=== PATIENT | female | born 1990 | race African-American/Black ===

== ENCOUNTER 2017-04-10 21:45 | Observation (INO) ==
[2017-04-10] MEDS ORDERED: HYDROmorphone 2 MG/1 ML VIAL IV STA (22:06)
[2017-04-10] MEDS ORDERED: ONDANSETRON 4 MG/2 ML VIAL IV STA (22:06)
[2017-04-10] MEDS ORDERED: DIPH/TET/ACEL PERT BOOSTER VACCINE 0.5 ML VIAL IM ONE ×2 (22:06→22:16)
[2017-04-10] MEDS ORDERED: CLINDAMYCIN INJ 600 MG in PREMIX 1 EACH IV STA (22:06)
[2017-04-10] MEDS ORDERED: LACTATED RINGERS 1,000 ML IV STA (22:06)
[2017-04-10] MEDS ORDERED: ONDANSETRON 4 MG/2 ML VIAL ONE (22:15)
[2017-04-10] MEDS ORDERED: CLINDAMYCIN INJ 50 ML IV ONE (22:15)
[2017-04-10] MEDS ORDERED: HYDROmorphone 2 MG/1 ML VIAL ONE (22:16)
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
[2017-04-10 22:53] LABS: Basophils % 0.2 % (0.0-0.8); Eosinophils % 0.3 % (0.00-10.9); Hematocrit 36.4 VOL% (35.7-47.0); Hemoglobin 12.6 GM/DL (12.0-16.0); Immature Granulocytes % 0.5 %; Immature Granulocytes Absolute 0.06 #; Lymphocytes # 1.7 10*3/uL (1.4-4.0); Lymphocytes % 13.1 % (21.3-54.2); Mean Corpuscular HGB Conc 34.6 GM/DL (32-36); Mean Corpuscular Hemoglobin 31 PG (27-34); Mean Corpuscular Volume 90.1 FL (87-102); Mean Platelet Volume 10.5 FL (9.6-12.0); Monocytes % 7.5 % (1.7-12.7); Neutrophils # 10.3 10*3/uL (1.4-7.4); Neutrophils % 78.4 % (38.7-73.9); Platelet Count 239 T/CUMM (130-400); Red Blood Count 4.04 MC/CUMM (3.8-5.5); White Blood Count 13.2 T/CUMM (4-12)
[2017-04-10 23:04] LABS: INR 1.1; Partial Thromboplastin Time 30.6 SECS (0-40)
[2017-04-10 23:12] LABS: Alanine Aminotransferase 22 U/L (13-56); Albumin 4.1 G/DL (3.4-5.0); Alkaline Phosphatase 76 U/L (45-117); Amylase 77 U/L (25-115); Aspartate Amino Transferase 32 U/L (0-37); Blood Urea Nitrogen 7 MG/DL (7-18); Calcium 9.7 MG/DL (8.5-10.1); Glucose 110 MG/DL (74-106); Osmolality,Calculated 281.1 MOS/KG (273-304); Potassium 3.7 MMOL/L (3.5-5.1); Sodium 142 MMOL/L (136-145); Total Protein 7.2 G/DL (6.4-8.3)
[2017-04-11 01:10] LABS: Barbiturates Screen,Urine Negative (Negative); Benzodiazepines Screen,Urine Negative (Negative); Cannabinoid Screen,Urine Positive (Negative); Opiate Screen,Urine Positive (Negative); Phencyclidine Screen,Urine Negative (Negative)
[2017-04-11 01:13] LABS: Apearance,Urine CLOUDY (Clear); Bilirubin,Urine Negative (Negative); Blood, Urine Moderate mg/dL (Negative); Glucose,Urine (UA) Negative (Negative); Ketones,Urine Negative (Negative); Mucus,Urine Occasional /LPF (Occasional); Nitrite,Urine Negative (Negative); Protein,Urine 30 MG/DL; RBC,Urine 7 /HPF (0-4); Squamous Epithelial Cell,Urine Occasional /HPF (0-10); Urine Specific Gravity 1.053 (1.001-1.035); Urine Urobilinogen < 2.0 EU/DL (0.2-1.0); WBC,Urine 3 /HPF (0-6)
[2017-04-11 01:14] LABS: Urine Color Yellow (Yellow)
[2017-04-11] MEDS ORDERED: ONDANSETRON 4 MG/2 ML VIAL IV PRN (02:12)
[2017-04-11] MEDS ORDERED: ACETAMINOPHEN 325 MG TABLET PO PRN (02:12)
[2017-04-11] MEDS ORDERED: HYDROmorphone 2 MG/1 ML VIAL IV PRN (02:12)
[2017-04-11] MEDS ORDERED: ALBUTEROL/IPRATROPIUM 3 ML NEB RESP TX PRN (02:12)
[2017-04-11] MEDS: LACTATED RINGERS 1,000 ML IV SCH ×2 (02:49→11:11)
[2017-04-11] MEDS: metroNIDAZOLE INJ 500 MG in PREMIX 1 EACH IV SCH ×2 (02:51→11:11)
[2017-04-11] MEDS ORDERED: CIPROFLOXACIN INJ 400 MG in PREMIX 1 EACH IV SCH (04:00)
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
--- NOTE | 2017-04-11 07:14 | XRay Report ---
XR femur BI, 2 views; XR knee 2V BI Clinical Information: pain. trauma Comparison: None Findings: Both femurs are intact without evidence of acute fracture. No suspicious osseous or soft tissue lesions are identified. Knee joints are intact with no evidence of acute fracture or dislocation. There is no joint effusion.. Impression: No acute findings. PROCEDURE INTERPRETED AT [facility] DEPARTMENT OF RADIOLOGY Final Report Signed by: Johnson De La Cruz
[2017-04-11 07:17] LABS: Basophils % 0.1 % (0.0-0.8); Eosinophils % 0.4 % (0.00-10.9); Hematocrit 32.6 VOL% (35.7-47.0); Hemoglobin 11.1 GM/DL (12.0-16.0); Immature Granulocytes % 0.4 %; Immature Granulocytes Absolute 0.04 #; Lymphocytes # 2.5 10*3/uL (1.4-4.0); Mean Corpuscular Hemoglobin 31 PG (27-34); Mean Corpuscular Volume 90.8 FL (87-102); Mean Platelet Volume 10.5 FL (9.6-12.0); Monocytes # 1.1 10*3/uL (0.11-0.8); Monocytes % 10.6 % (1.7-12.7); Neutrophils # 6.6 10*3/uL (1.4-7.4); Neutrophils % 64.5 % (38.7-73.9); Platelet Count 217 T/CUMM (130-400); Red Blood Count 3.59 MC/CUMM (3.8-5.5); Red Cell Distribution Width 13.1 % (9.3-17.3); White Blood Count 10.2 T/CUMM (4-12)
[2017-04-11 07:45] LABS: Albumin 3.2 G/DL (3.4-5.0); Bilirubin,Total 0.5 MG/DL (0.2-1.0); Calcium 8.6 MG/DL (8.5-10.1); Magnesium 1.7 MG/DL (1.8-2.4); Potassium 3.8 MMOL/L (3.5-5.1); Total Protein 5.7 G/DL (6.4-8.3)
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
[2017-04-11] MEDS ORDERED: PANTOPRAZOLE 40 MG TABLET PO SCH (09:00)
[2017-04-11 11:56] VITALS: BP 109/53
== END 2017-04-11 14:40 | disposition home or self-care (01) ==
LOC: EDBD → EDUNIT# → N.EDINP 21:45 → N.ED 21:45 → N.3E 04-11 01:58
PROVIDERS: ADMIT Surgery; ATTEND Surgery